=== PATIENT | female | born 2000 | race Caucasian/White ===

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

== ENCOUNTER → 2021-08-02 13:49 | Outpatient (BNVA) | payer OTHER, BC, MEDICAID, SELFPAY | PROVIDERS: Family Provider Family Medicine; Visit Provider Nurse Practitioner Women's Health | DX: N92.6 Irregular menstruation, unspecified (principal) | CPT/HCPCS: 81025 ==

== ENCOUNTER → 2021-09-01 09:09 | Outpatient (BNVA) | payer OTHER, BC, MEDICAID, SELFPAY | PROVIDERS: Family Provider Family Medicine; Visit Provider Obstetrics & Gynecology | DX: Z34.90 Encounter for supervision of normal pregnancy, unspecified, unspecified trimester (principal) | CPT/HCPCS: 80307; 84315; 85027; 86592; 86762; 86803; 86850; 86900; 87086; 87340; 87806 ==

== ENCOUNTER 2021-09-08 20:15 | Emergency (ER) | payer OTHER, BC, MEDICAID, SELFPAY ==
[2021-09-08 20:22] VITALS: BP 148/102; PULSE 108; RESP 16; TEMP 36.9; O2SAT 99; BMI 18.6
--- NOTE | 2021-09-08 21:53 | W.ED.PREGNAN ---
Documented by User: SCOTT Samano 09/08/21 23:50 HPI - General: Chief complaint: Vaginal Bleeding Stated complaint: 12 Weeks Preg\Spotting Time Seen by Provider: 09/08/21 21:13 History of Present Illness: Patient states she about 12 weeks . Had some cramping this morning with some rust colored discharge that is now become light pink. She denies any odorous discharge. Denies any itching. Does have some mild cramping her bladder area. Denies any fever chills nausea or vomiting. This is her first . Date of Last Menstrual Period: 06/17/21 Associated symptoms: Deny abdominal pain, headache(s), nausea or vomiting Review of Systems Const: Denies: fever(s), chills or body aches Eyes: Denies: eye discomfort ENMT: Denies: throat pain Card: Denies: chest pain Resp: Denies: dyspnea GI: Reports: other (Cramping); Denies: abdominal pain, nausea or vomiting : Reports: other (Spotting) Skin/Breast: Denies: rash Neuro: Denies: headache(s) Psych: Denies: depression or suicidal ideation PFS ED PFSH: Medical History (Updated 09/08/21 @ 23:38 by SCOTT Samano) Allergic rhinitis No pertinent past medical history neghx: htn,dm,thyroid,dvt/pe PCP: None Surgical History (Updated 08/02/21 @ 14:02 by Joelle Sagastume APN, JACK) H/O wisdom tooth extraction (~2019) Family History Father Hypercholesteremia Hypertension Denies family history of Colon cancer Ovarian cancer Diabetes Breast cancer Uterine cancer Thyroid disease Stroke Female Reproductive History: Date of last menstrual period: 06/17/21 Physical Exam Const: COMMON NORMALS: no acute distress, patient oriented x3 and alert HENMT: COMMON NORMALS: normocephalic and external ears normal HEAD & SCALP: normocephalic EXTERNAL EAR: Yes external ears normal Eye: COMMON NORMALS: EOMs intact bilaterally Neck/C-Spine: COMMON NORMALS: no JVD Resp: COMMON NORMALS: normal respiratory effort and No use of accessory muscles Cardio: COMMON NORMALS: no JVD GI: INSPECTION: Yes normal to inspection (Tenderness over the bladder area with palpation) Extremity: COMMON NORMALS: normal to inspection and full ROM Neuro: COMMON NORMALS: patient oriented x3 SENSORIUM/ORIENTATION: Yes alert Psych: COMMON NORMALS: mental status grossly normal Skin: COMMON NORMALS: no rashes or lesions noted GENERAL SKIN EXAM: no rashes or lesions noted Course Vital Signs: Vital signs: Vital Signs Temperature 98.4 F 09/08/21 20:22 Pulse Rate 90 09/08/21 23:45 Respiratory Rate 16 09/08/21 23:45 Blood Pressure 120/71 09/08/21 23:45 Pulse Oximetry 98 09/08/21 23:45 MDM - OB/Uterine Contractions Medical Decision Making Patient presents with mild light spotting today. Patient did have rust colored discharge earlier today but is turning the pink. Patient has had mild cramping has had an ultrasound done to Dr. Simon's office. Was told that she probably 12 weeks estimated date of conception March 22. Patient Nuys any fever chills shortness of breath nausea or vomiting or increased urination. Laboratory studies were done show the patient is O+ for blood type. hCG is at 12,000 which is is consistent with about 15 weeks. No signs UTI white count looks normal. Patient was encouraged to follow-up with Dr. Simon's office on Saturday or return or ER if has worsening symptoms. Lab Data : 09/08/21 22:25 Laboratory Results WBC 6.9 10^3/uL (4.5-13.0) 09/08/21: RBC 3.93 10^6/uL (4.1-5.3) L 09/08/21 22: Hgb 11.9 g/dL (11.5-15.3) 09/08/21: Hct 35.8 % (37.0-47.0) L 09/08/21: MCV 91.1 fl (81-99) 09/08/21: MCH 30.3 pg (28.0-34.0) 09/08/21 22: MCHC 33.2 g/dL (30.0-36.0) 09/08/21 22: RDW 12.6 % (12.1-15.1) 09/08/21 22: Plt Count 230 10^3/cmm (130-400) 09/08/21: MPV 10.7 fL (7.4-10.4) H 09/08/21: Neut % (Auto) 66.7 % 09/08/21: Lymph % (Auto) 22.5 % 09/08/21: [place] % (Auto) 8.8 % 09/08/21: Eos % (Auto) 1.2 % 09/08/21: Baso % (Auto) 0.4 % 09/08/21: Neut # (Auto) 4.61 10^3/uL (1.8-8.0) 09/08/21: Lymph # (Auto) 1.6 10^3/uL (1.5-6.5) 09/08/21: [place] # (Auto) 0.6 10^3/uL (0.2-0.9) 09/08/21: Eos # (Auto) 0.1 10^3/uL (0.0-0.8) 09/08/21: Baso # (Auto) 0.0 10^3/uL (0.0-0.1) 09/08/21: Nucleated RBC % (auto) 0 % 09/08/21 Nucleated RBCs # 0.0 /100WBC 09/08/21: Ser , Semi-Qnt 250112.00 mIU/mL 09/08/21: Urine Color Yellow (Yellow) 09/08/21: Urine Appearance Clear (CLEAR) 09/08/21: Urine pH 5 (5-7) 09/08/21: Ur Specific [place] 1.025 (1.005-1.030) 09/08/21: Urine Protein Neg (Negative) 09/08/21: Urine Glucose (UA) Norm (Normal) 09/08/21: Urine Ketones 1+ (Negative) H 09/08/21: Urine Blood Neg (Negative) 09/08/21: Urine Nitrate Negative (Negative) 09/08/21: Urine Bilirubin Neg (Negative) 02/25/22 22:47 Urine Urobilinogen 1 mg/dL (Negative) H 09/08/21 22:47 Ur Leukocyte Esterase Negative (Negative) 09/08/21 22:47 Blood Type O Positive 09/08/21 22:47 Rho(D) Type Positive 09/08/21 22:47 Discharge Plan Discharge Patient Disposition: Home Clinical Impression: Threatened Condition: Stable Prescriptions: No Action Vitamin 27 mg iron- 800 mcg tablet 1 tab PO DAILY 0RF calcium carbonate [Tums] 200 mg calcium (500 mg) tablet,chewable 200 mg PO BID PRN0RF Discharge Orders: Discharge ED (Routine); Ordered 09/08/21 Ordered By: Wellington Elliott Discharge Diet: Usual diet Discharge Activity: Increase activity as tolerated Patient Instructions: Threatened Miscarriage (ED) Activity Restrictions/Additional Instructions: Take it easy over the weekend. Drink plenty of water. Follow-up with Dr. Simon's office on Saturday. If worsening symptoms or increased bleeding or cramping please return here to the ER. Coding Level of Care Code ED Arabic Teacher for Chg Fwd Exam Comprehensive Documented by User: Ryan Ibarra DO 09/09/21 01:16 HPI - General: Chief complaint: Vaginal Bleeding Stated complaint: 12 Weeks Preg\Spotting Time Seen by Provider: 09/08/21 21:13 [facility] ED PFSH: Medical History (Updated 09/08/21 @ 23:38 by SCOTT Samano) Allergic rhinitis No pertinent past medical history neghx: htn,dm,thyroid,dvt/pe PCP: None Surgical History (Updated 08/02/21 @ 14:02 by Joelle Sagastume APN, JAKC) H/O wisdom tooth extraction (~2019) Family History Father Hypercholesteremia Hypertension Denies family history of Colon cancer Ovarian cancer Diabetes Breast cancer Uterine cancer Thyroid disease Stroke Course Vital Signs: Vital signs: Vital Signs Temperature 98.4 F 09/08/21 20:22 Pulse Rate 90 09/08/21 23:45 Respiratory Rate 16 09/08/21 23:45 Blood Pressure 120/71 09/08/21 23:45 Pulse Oximetry 98 09/08/21 23:45 MDM - OB/Uterine Contractions Medical Decision Making Patient presents with mild light spotting today. Patient did have rust colored discharge earlier today but is turning the pink. Patient has had mild cramping has had an ultrasound done to Dr. Simon's office. Was told that she probably 12 weeks estimated date of conception March 22. Patient Nuys any fever chills shortness of breath nausea or vomiting or increased urination. Laboratory studies were done show the patient is O+ for blood type. hCG is at 12,000 which is is consistent with about 15 weeks. No signs UTI white count looks normal. Patient was encouraged to follow-up with Dr. Simon's office on Saturday or return or ER if has worsening symptoms. This patient was originally seen by SCOTT Umaña.? I agree with his history, evaluation, and treatment. Lab Data : 09/08/21: Laboratory Results WBC 6.9 10^3/uL (4.5-13.0) 09/08/21: RBC 3.93 10^6/uL (4.1-5.3) L 09/08/21: Hgb 11.9 g/dL (11.5-15.3) 09/08/21: Hct 35.8 % (37.0-47.0) L 09/08/21: MCV 91.1 fl (81-99) 09/08/21: MCH 30.3 pg (28.0-34.0) 09/08/21: MCHC 33.2 g/dL (30.0-36.0) 09/08/21: RDW 12.6 % (12.1-15.1) 09/08/21: Plt Count 230 10^3/cmm (130-400) 09/08/21 22: MPV 10.7 fL (7.4-10.4) H 09/08/21: Neut % (Auto) 66.7 % 09/08/21 22: Lymph % (Auto) 22.5 % 09/08/21 22:25 [place] % (Auto) 8.8 % 09/08/21 22: Eos % (Auto) 1.2 % 09/08/21 22: Baso % (Auto) 0.4 % 09/08/21 22: Neut # (Auto) 4.61 10^3/uL (1.8-8.0) 09/08/21 22: Lymph # (Auto) 1.6 10^3/uL (1.5-6.5) 09/08/21 22: [place] # (Auto) 0.6 10^3/uL (0.2-0.9) 09/08/21: Eos # (Auto) 0.1 10^3/uL (0.0-0.8) 09/08/21: Baso # (Auto) 0.0 10^3/uL (0.0-0.1) 09/08/21: Nucleated RBC % (auto) 0 % 09/08/21: Nucleated RBCs # 0.0 /100WBC 09/08/21 22: Ser , Semi-Qnt 098286.00 mIU/mL 09/08/21 22: Urine Color Yellow (Yellow) 09/08/21 22: Urine Appearance Clear (CLEAR) 09/08/21 22:47 Urine pH 5 (5-7) 09/08/21 22:47 Ur Specific [place] 1.025 (1.005-1.030) 09/08/21 22:47 Urine Protein Neg (Negative) 09/08/21 22:47 Urine Glucose (UA) Norm (Normal) 09/08/21 22:47 Urine Ketones 1+ (Negative) H 09/08/21 22:47 Urine Blood Neg (Negative) 09/08/21 22:47 Urine Nitrate Negative (Negative) 09/08/21: Urine Bilirubin Neg (Negative) 09/08/21 22:47 Urine Urobilinogen 1 mg/dL (Negative) H 09/08/21 22:47 Ur Leukocyte Esterase Negative (Negative) 09/08/21 22:47 Blood Type O Positive 09/08/21 22:47 Rho(D) Type Positive 09/08/21 22:47 Discharge Plan Discharge Patient Disposition: Home Clinical Impression: Threatened Condition: Stable Prescriptions: No Action Vitamin 27 mg iron- 800 mcg tablet 1 tab PO DAILY 0RF calcium carbonate [Tums] 200 mg calcium (500 mg) tablet,chewable 200 mg PO BID PRN0RF Discharge Orders: Discharge ED (Routine); Ordered 09/08/21 Ordered By: Wellington Elliott Discharge Diet: Usual diet Discharge Activity: Increase activity as tolerated Patient Instructions: Threatened Miscarriage (ED) Activity Restrictions/Additional Instructions: Take it easy over the weekend. Drink plenty of water. Follow-up with Dr. Simon's office on Saturday. If worsening symptoms or increased bleeding or cramping please return here to the ER. Coding Level of Care Code ED Arabic Teacher for Tyesha Fwyury Exam Comprehensive
[2021-09-08 22:31] VITALS: BP 125/90; PULSE 104; RESP 17; O2SAT 99
[2021-09-08 22:48] LABS: Basophils % 0.4 %; Eosinophils # 0.1 10^3/uL (0.0-0.8); Eosinophils % 1.2 %; Hematocrit 35.8 % (37.0-47.0); Hemoglobin 11.9 g/dL (11.5-15.3); Lymphocytes # 1.6 10^3/uL (1.5-6.5); Lymphocytes % 22.5 %; Mean Corpuscular HGB Conc 33.2 g/dL (30.0-36.0); Mean Corpuscular Hemoglobin 30.3 pg (28.0-34.0); Mean Corpuscular Volume 91.1 fl (81-99); Mean Platelet Volume 10.7 fL (7.4-10.4); Monocytes # 0.6 10^3/uL (0.2-0.9); Monocytes % 8.8 %; Neutrophils # 4.61 10^3/uL (1.8-8.0); Neutrophils % 66.7 %; Nucleated Red Blood Cells % 0 %; Platelet Count 230 10^3/cmm (130-400); Red Blood Count 3.93 10^6/uL (4.1-5.3); Red Cell Distribution Width 12.6 % (12.1-15.1); White Blood Count 6.9 10^3/uL (4.5-13.0)
[2021-09-08 22:54] LABS: Add Urine Microscopic? NO; Charge for UA Resulting for Rev
[2021-09-08 23:12] LABS: Bilirubin Urine Neg (Negative); Blood Urine Neg (Negative); Glucose Urine UA Norm (Normal); Ketones Urine 1+ (Negative); Leukocyte Esterase Urine Negative (Negative); Nitrate Urine Negative (Negative); Protein Urine Neg (Negative); Specific Gravity, Urine 1.025 (1.005-1.030); Urine Appearance Clear (CLEAR); Urine Color Yellow (Yellow); Urobilinogen Urine 1 mg/dL (Negative); pH Urine 5 (5-7)
[2021-09-08 23:45] VITALS: BP 120/71; PULSE 90; RESP 16; O2SAT 98
== END 2021-09-08 23:46 | disposition home or self-care (01) ==
PROVIDERS: Emergency Provider Nurse Practitioner Family
DX: O20.0 Threatened abortion (principal); Z3A.12 12 weeks gestation of pregnancy
CPT/HCPCS: 81003; 84702; 85025; 86900; 99283

== ENCOUNTER → 2021-09-15 13:18 | Outpatient (BNVA) | payer OTHER, BC, MEDICAID, SELFPAY | PROVIDERS: Visit Provider Obstetrics & Gynecology | DX: Z34.80 Encounter for supervision of other normal pregnancy, unspecified trimester (principal) | CPT/HCPCS: 84315; 87491; 87591 ==

== ENCOUNTER → 2021-11-06 09:07 | Outpatient (BNVA) | payer OTHER, BC, MEDICAID, SELFPAY | PROVIDERS: Visit Provider Obstetrics & Gynecology | DX: Z36.87 Encounter for antenatal screening for uncertain dates (principal) | CPT/HCPCS: 76805 ==

== ENCOUNTER → 2021-12-15 09:16 | Outpatient (BNVA) | payer OTHER, BC, MEDICAID, SELFPAY | PROVIDERS: Visit Provider Obstetrics & Gynecology | DX: Z34.01 Encounter for supervision of normal first pregnancy, first trimester (principal) | CPT/HCPCS: 82950 ==

== ENCOUNTER → 2022-01-02 15:33 | Outpatient (BNVA) | payer OTHER, BC, MEDICAID, SELFPAY | PROVIDERS: Visit Provider Obstetrics & Gynecology | DX: Z34.00 Encounter for supervision of normal first pregnancy, unspecified trimester (principal) | CPT/HCPCS: 84315; 85027 ==

== ENCOUNTER → 2022-02-12 14:00 | Outpatient (BNVA) | payer OTHER, SELFPAY | PROVIDERS: Visit Provider Obstetrics & Gynecology | DX: Z34.01 Encounter for supervision of normal first pregnancy, first trimester (principal) | CPT/HCPCS: 84315; 85025 ==

== ENCOUNTER → 2022-03-05 15:07 | Outpatient (BNVA) | payer OTHER, BC, SELFPAY | PROVIDERS: Visit Provider Obstetrics & Gynecology | DX: Z34.03 Encounter for supervision of normal first pregnancy, third trimester (principal) | CPT/HCPCS: 84315; 87081 ==

== ENCOUNTER 2022-03-22 02:18 | Inpatient (IN) | payer OTHER, BC, MEDICAID, SELFPAY ==
[2022-03-22] VITALS (75 sets, daily range): BP systolic 98–175; BP diastolic 56–106; PULSE 61–106; RESP 16–17; TEMP 36.3–37; O2SAT 92–100; BMI 21.6
[2022-03-22 01:09] LABS: Nitrazine Paper, PH Negative
[2022-03-22 01:19] LABS: Actim Prom Positive
[2022-03-22 02:23] LABS: Basophils % 0.3 %; Eosinophils % 0.5 %; Hematocrit 40.4 % (37.0-47.0); Lymphocytes # 1.7 10^3/uL (0.8-4.8); Lymphocytes % 19.3 %; Mean Corpuscular HGB Conc 32.2 g/dL (30.0-36.0); Mean Corpuscular Hemoglobin 29.8 pg (28.0-34.0); Mean Corpuscular Volume 92.7 fl (81-99); Mean Platelet Volume 12.3 fL (7.4-10.4); Monocytes # 0.8 10^3/uL (0.2-0.9); Monocytes % 9.2 %; Neutrophils % 70.1 %; Nucleated Red Blood Cells % 0 %; Platelet Count 238 10^3/cmm (130-400); Red Blood Count 4.36 10^6/uL (4.1-5.3); Red Cell Distribution Width 13.6 % (12.1-15.1); White Blood Count 8.8 10^3/uL (4.0-10.0)
[2022-03-22] MEDS: dextrose 5%-lactated ringers 1,000 ML 125 ML IV (02:41)
--- NOTE | 2022-03-22 13:10 | PM.OPHPUD ---
Labor & Delivery H&P Update Date of Procedure: March 22, 2022 Date H&P Performed: 03/20/22 H&P update information: I have reviewed H&P completed within last 30 days, I have examined patient prior to procedure and No changes to prior documentation Admission Diagnosis: Preop diagnosis: Planning of labor analgesia
[2022-03-22] MEDS: ampicillin 2,000 MG in sodium chloride 0.9% (plus) 50 ML 100 MG IV (13:31)
[2022-03-22] MEDS: miSOPROStol 100 mcg tablet 25 MCG VAGINAL (13:37)
[2022-03-22] MEDS: fentaNYL 50 mcg/mL INJ 2mL IVP (17:23)
[2022-03-22] MEDS: ondansetron 2 mg/ML SDV 2 mL 4 MG IVP (17:27)
[2022-03-22] MEDS: lactated ringers 1,000 ML 999 ML IV ×2 (17:27→17:30)
[2022-03-22] MEDS: lidocaine 2% INJ 20 mL INJECTION (18:20)
[2022-03-22] MEDS: oxytocin 30 UNIT/500 ML BAG 600 UNIT IV (18:31)
--- NOTE | 2022-03-22 20:10 | P.PCNOB_ITS ---
Delivery Note: Date of delivery: March 22, 2022 Pre-delivery diagnoses: Term Prelabor rupture of membranes Post-delivery diagnoses: Same as above Procedure: A spontaneous vaginal delivery Delivering Physician: Raheem Simon MD Estimated blood loss (mL): 300 Delivery: The patient was noted to be complete and pushing, so was placed in the dorsal lithotomy position, prepped and draped in the usual sterile fashion for a vaginal delivery. Pt. Noted he has a 30 admissible at our [facility] 1 not to have epidural anesthesia. At 1827 the patient delivered a viable male infant with estimated gestational age 39 weeks weighing 3070 g with scores of 8 and 9 at one and five minutes, respectively. The vertex was delivered spontaneously over intact perineum. The patient was asked to push and the head delivered spontaneously in the SANDY position, over an intact perineum. A nuchal cord was checked and none noted. The anterior shoulder delivered easily and the posterior shoulder followed. The remainder of the was easily delivered and the oropharynx and nasopharynx was bulb suctioned. The was noted to have spontaneous cry and spontaneous movement of all four extremities. The cord was clamped x 2 and cut and noted to have 2 arteries and one vein. The was passed to the mother's abdomen where nursing personnel were in attendance. Cord blood sample was then obtained. The placenta delivered intact spontaneously and the uterus was explored. 20 units of Pitocin was placed in the IV bag to firm the uterus. Examination of the cervix and vaginal vault did not reveal any lacerations. A vaginal pack was then placed. Examination of the perineum showed a 2nd degree laceration. The laceration was repaired with 3-0 Vicryl in the normal fashion in a running non locking fashion to reapproximate the laceration in layers. The vaginal pack was then removed. The patient tolerated this procedure well, and recovered in L&D with her infant in their LDR room. All sponge and needle counts were correct. 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
[2022-03-22] MEDS: lanolin oint 7 gm 1 APPLIC TOPICAL (21:17)
[2022-03-22] MEDS: ibuprofen 800 mg tablet PO (21:17)
[2022-03-22] MEDS: benzocaine-menthol 78 gm Canister 1 SPRAY TOPICAL (21:17)
[2022-03-23 00:29] VITALS: BP 110/70; PULSE 60
[2022-03-23 03:19] VITALS: BP 107/69; PULSE 62
[2022-03-23 04:00] VITALS: RESP 17; TEMP 36.2
[2022-03-23] MEDS: docusate sodium 100 mg Capsule PO ×2 (09:23→17:03)
[2022-03-23] MEDS: ibuprofen 800 mg tablet PO ×2 (09:23→17:03)
[2022-03-23] MEDS: prenatal vitamin Capsule 1 CAP PO (09:23)
[2022-03-23 09:33] VITALS: BP 105/67; PULSE 60; RESP 17; TEMP 36.6; O2SAT 98
[2022-03-23 14:00] LABS: Hematocrit 31.3 % (37.0-47.0); Mean Corpuscular HGB Conc 31.9 g/dL (30.0-36.0); Mean Corpuscular Hemoglobin 30.5 pg (28.0-34.0); Mean Corpuscular Volume 95.4 fl (81-99); Mean Platelet Volume 11.8 fL (7.4-10.4); Platelet Count 188 10^3/cmm (130-400); Red Blood Count 3.28 10^6/uL (4.1-5.3); Red Cell Distribution Width 13.9 % (12.1-15.1); White Blood Count 8.8 10^3/uL (4.0-10.0)
[2022-03-23 16:34] VITALS: BP 110/64; PULSE 67; RESP 17; TEMP 36.6; O2SAT 98
--- NOTE | 2022-03-23 19:32 | PM.OBGYDC ---
Discharge Providers SUPPORT SERVICE TECH Date of Admission: 03/22/22 02:18 Date of Discharge: 03/23/22 Attending Provider at Admission: Raheem Simon MD Attending Provider at Discharge: Raheem Simon MD Primary SUPPORT SERVICE TECH: Raheem Simon MD Reason for Visit Reason for Visit: POSSIBLE ROM Brief History: Ms. Sharmila quintanilla 22-year-old female G1, P0 Hospital Course Hospital Course Ms. Barron 22-year-old female G1, P0 with an estimated gestational age at 39+5 days came to labor and delivery with chief complaint of rupture of membranes. Prelabor rupture of membranes was confirmed by Actin-PROM. She was admitted misoprostol was given for cervical ripening x1 she then progressed spontaneously to a spontaneous vaginal delivery without complications. She delivered a male term Apgars 8/9 with a birthweight of 3070 g. observation has been uneventful. She is afebrile hemodynamically stable day 1. Tolerating diet well. Ambulating without difficulty. She is breast-feeding without difficulty. She was counseled regarding pelvic rest for 6 weeks (no sex, no tampons, no vaginal douches). Return to the emergency room if any fever, increased bleeding or pain. Information Peripartum Data: Infant Delivery Method: Vaginal Physical Exam Narrative: GA; alert and oriented x 3 HEENT: normal Breasts: engorged Nipples - skin intact Lungs; clear to auscultation Heart: regular rhythm, no murmurs. Abd: Appropriately tender. BS+. Uterine fundus below umbilicus. No Fundal Tenderness. Perineum: normal lochia. Extremities: no edema, no cyanosis, no tenderness. History History History 1 Term Miscarriages/Ectopic Living Children Discharge Data Studies Completed and Pending Laboratory Results WBC 8.8 10^3/uL (4.0-10.0) 03/23/22 13:40 RBC 3.28 10^6/uL (4.1-5.3) L 03/23/22 13:40 Hgb 10.0 g/dL (11.5-15.3) L 03/23/22 13:40 Hct 31.3 % (37.0-47.0) L 03/23/22 13:40 MCV 95.4 fl (81-99) 03/23/22 13:40 MCH 30.5 pg (28.0-34.0) 03/23/22 13:40 MCHC 31.9 g/dL (30.0-36.0) 03/23/22 13:40 RDW 13.9 % (12.1-15.1) 03/23/22 13:40 Plt Count 188 10^3/cmm (130-400) 03/23/22 13:40 MPV 11.8 fL (7.4-10.4) H 03/23/22 13:40 Neut % (Auto) 70.1 % 03/22/22 01:45 Lymph % (Auto) 19.3 % 03/22/22 01:45 [place] % (Auto) 9.2 % 03/22/22 01:45 Eos % (Auto) 0.5 % 03/22/22 01:45 Baso % (Auto) 0.3 % 03/22/22 01:45 Neut # (Auto) 6.20 10^3/uL (1.8-7.7) 03/22/22 01:45 Lymph # (Auto) 1.7 10^3/uL (0.8-4.8) 03/22/22 01:45 [place] # (Auto) 0.8 10^3/uL (0.2-0.9) 03/22/22 01:45 Eos # (Auto) 0.0 10^3/uL (0.0-0.8) 03/22/22 01:45 Baso # (Auto) 0.0 10^3/uL (0.0-0.1) 03/22/22 01:45 Nucleated RBC % (auto) 0 % 03/22/22 01:45 Nucleated RBCs # 0.0 /100WBC 03/22/22 01:45 Insulin-like GF I Positive 03/22/22 00:59 Vitals Last Vital Signs Temp 97.9 F 03/23/22 16:34 Pulse 67 03/23/22 16:34 Resp 17 03/23/22 16:34 BP 110/64 03/23/22 16:34 Pulse Ox 98 03/23/22 16:34 O2 Del Method 03/22/22 05:54 Discharge Plan Discharge Patient Disposition: Home Condition: Stable Prescriptions: New acetaminophen 325 mg capsule 325 mg PO Q4H PRN (Reason: fever or pain) Qty: 60 0RF docusate sodium [Colace] 100 mg capsule 100 mg PO BID Qty: 60 0RF ferrous sulfate [Iron (ferrous sulfate)] 325 mg (65 mg iron) tablet 325 mg PO BID Qty: 60 0RF ibuprofen 800 mg tablet 800 mg PO TID PRN (Reason: pain) Qty: 60 0RF Continued Vitamin 27 mg iron- 800 mcg tablet 1 tab PO DAILY calcium carbonate [Tums] 200 mg calcium (500 mg) tablet,chewable 200 mg PO BID PRN (Reason: Heartburn) (DME) breast pump Device See Rx Instructions .Route Qty: 1 0RF Rx Instructions: As directed ferrous sulfate 325 mg (65 mg iron) tablet 325 mg PO DAILY Qty: 90 1RF Discharge Orders: Discharge Order (Routine); Ordered 03/23/22 Ordered By: Raheem Simon Referrals: Raheem Simon MD [Physician] - 6 Weeks Discharge Diet: Usual diet Discharge Activity: Limit activity as instructed Patient Instructions: Opioid Safety, Vaginal Delivery (GEN), Bleeding (GEN) Activity Restrictions/Additional Instructions: 1. Please call [facility] on next working day to make your appointment in 6 weeks. 2. Please stay home until you come back to the clinic on first post-operative check up. 3. Please follow instructions on your medications CAREFULLY. 4. If you have abdominal incision, do not cover it unless dressing is necessary because of drainage. OK to shower, but avoid bath. Leave steri-strips until they fall off. If they are still on one week after surgery, you may remove them. 5. If you had vaginal surgery or vaginal repair, Dr. Simon may instruct you to take SITZ bath. 6. Yellow, blood tinged odorous vaginal discharge is usually normal after hysterectomy or vaginal surgeries. 7. No sexual intercourse, tampons, or douches until you are completely released from the post-operative care. 8. Avoid constipation by eating right and maybe using some Metamucil or Milk of Magnesia. 9. All prescription refills are given during the working hours. Please do no wait till it runs out. Call the clinic at [phone] before your medication runs out. The clinic will get in touch with your doctor to prescribe medications if necessary. 10. Please remain within 40 mile radius from our hospital because emergencies do happen now and then during the post-operative period. 11. If you have stairs at home, take one step at a time slowly and minimize the number of trips. It helps to stay in one floor for the next few days. No lifting except what you can lift by one hand until you are released from the post-operative care. 12. Driving is discouraged until you are well healed. It may be 3-4 weeks before you feel strong enough to drive. You should be able to turn and look through the rear window without pain and you should be able to push the brake pedal very hard without pain before you drive. No fast rules, but SAFETY should be your primary concern. DO NOT drive if you are on sedating medications such as narcotics. 13. Call the clinic (during working hours) to make urgent appointment or go to the Emergency room, if any of the following occurs: i. Vaginal bleeding becomes heavy, more than a period. ii. Incision becomes red and sore, or drains pus. iii. Your temperature is over 100.4 or you have chill. iv. IV site becomes red and swollen (a little ``knot?? is usually OK) v. Persistent nausea and vomiting vi. Persistent constipation or diarrhea vii. Rash or allergic reaction to medications. Discharge Attestations SUPPORT SERVICE TECH Time Spent in Discharge Care*: greater than 30 min Coding Level of Care Code Acute Ammonia Still Operator for Tyesha Wiggins
[2022-03-23 23:00] VITALS: BP 110/76; PULSE 95; RESP 18; TEMP 36.6
== END 2022-03-23 23:30 | disposition home or self-care (01) | DRG 807 ==
LOC: OPOB 03-23 08:42
PROVIDERS: Admitting Provider Obstetrics & Gynecology; Visit Provider Obstetrics & Gynecology
DX: O42.02 Full-term premature rupture of membranes, onset of labor within 24 hours of rupture (principal); Z37.0 Single live birth; O70.1 Second degree perineal laceration during delivery; Z3A.39 39 weeks gestation of pregnancy
CPT/HCPCS: 36415; 59025; 59409; 83986; 84112; 85025; 85027; 99211; J0290; J2405; J3010

== ENCOUNTER → 2022-05-07 15:00 | Outpatient (BNVA) | payer OTHER, BC, SELFPAY | PROVIDERS: Visit Provider Obstetrics & Gynecology | DX: Z12.4 Encounter for screening for malignant neoplasm of cervix (principal); Z39.2 Encounter for routine postpartum follow-up | CPT/HCPCS: 88175 ==

== ENCOUNTER → 2022-10-04 10:47 | Outpatient (BNVA) | payer OTHER, BC, SELFPAY | PROVIDERS: PCP Family Medicine; Visit Provider Family Medicine | DX: R00.2 Palpitations (principal); B35.3 Tinea pedis; L01.00 Impetigo, unspecified | CPT/HCPCS: 80053; 84443; 85025 ==